=== PATIENT | female | born 1965 | race Caucasian/White ===

== ENCOUNTER 2019-03-04 21:32 | Emergency (ER) | payer SELFPAY ==
[~2019-03-04] VITALS: Ht 160 cm; Wt 56.7 kg
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
[2019-03-04 22:07] VITALS: BP 102/69
[2019-03-04] MEDS ORDERED: Lidocaine 1% MPF 10mg/ml 5ml INJ ONE (22:15)
[2019-03-04] MEDS ORDERED: Azithromycin 250mg tab ORAL ONE (22:15)
[2019-03-04 22:21] LABS: BASOPHILS % (AUTO) 0.8 % (0.0-2.0); EOSINOPHILS % (AUTO) 4.3 % (0.0-3.0); HEMATOCRIT 37.3 % (37.0-47.0); HEMOGLOBIN 12.3 G/DL (12.0-16.0); LYMPHOCYTES % (AUTO) 33.8 % (20.0-45.0); MEAN CORPUSCULAR VOLUME 93 FL (80-99); MONOCYTES % (AUTO) 11.5 % (1.0-10.0); NEUTROPHILS % (AUTO) 49.7 % (45.0-75.0); PLATELET COUNT 334 K/UL (150-450); RED BLOOD COUNT 4.03 M/UL (4.20-5.40); WHITE BLOOD COUNT 7.3 K/UL (4.8-10.8)
[2019-03-04 22:22] LABS: APPEARANCE,URINE CLOUDY; BILIRUBIN, URINE NEGATIVE (NEGATIVE); GLUCOSE, URINE (UA) NEGATIVE (NEGATIVE); KETONES,URINE 1+ (NEGATIVE); LEUKOCYTE ESTERASE ,URINE 3+ (NEGATIVE); NITRITE,URINE NEGATIVE (NEGATIVE); PH,URINE 5 (4.5-8.0); PROTEIN,URINE 1+ (NEGATIVE); UROBILINOGEN,URINE NORMAL MG/DL (0.0-1.0)
[2019-03-04 22:24] LABS: COLOR,URINE YELLOW
[2019-03-04 22:30] LABS: ANION GAP 7 mmol/L (5-15); BLOOD UREA NITROGEN 24 mg/dL (7-18); CALCIUM 9.1 MG/DL (8.5-10.1); CARBON DIOXIDE 29 MMOL/L (21-32); CHLORIDE 102 MMOL/L (98-107); CREATININE 0.9 MG/DL (0.55-1.30); SODIUM 138 MMOL/L (136-145)
[2019-03-04] MEDS ORDERED: metroNIDAZOLE 500mg tab ORAL ONE (22:45)
--- NOTE | 2019-03-04 22:53 | Diagnostic Imaging Report ---
EXAM: CT Abdomen and Pelvis Without Intravenous Contrast CLINICAL HISTORY: PAIN TECHNIQUE: Axial computed tomography images of the abdomen and pelvis without intravenous contrast. CTDI is 70 mGy and DLP is 967 mGy-cm. One or more of the following dose reduction techniques were used: automated exposure control, adjustment of the mA and/or kV according to patient size, use of iterative reconstruction technique. COMPARISON: No relevant prior studies available. FINDINGS: Artifacts: Study at least moderately degraded by patient motion. Limitations: Evaluation limited by the absence of IV contrast administration. Lung bases: Unremarkable. No mass. No consolidation. ABDOMEN: Liver: Unremarkable. Gallbladder and bile ducts: Unremarkable. No calcified stones. No ductal dilation. Pancreas: Unremarkable. No ductal dilation. Spleen: Unremarkable. No splenomegaly. Adrenals: Indeterminate nodular thickening left adrenal gland. Kidneys and ureters: Unremarkable. No obstructing stones. No hydronephrosis. Stomach and bowel: Moderate retained stool in the colon. Negative for high-grade obstruction or pneumatosis. No mucosal thickening. PELVIS: Appendix: No findings to suggest acute appendicitis. Bladder: Urinary bladder is inadequately distended for accurate evaluation. No stones. Reproductive: Unremarkable as visualized. ABDOMEN and PELVIS: Intraperitoneal space: Unremarkable. No free air. No significant fluid collection. Bones/joints: No acute fracture. No dislocation. Soft tissues: Unremarkable. Vasculature: Unremarkable. No abdominal aortic aneurysm. Lymph nodes: Mildly enlarged bilateral inguinal lymph nodes. IMPRESSION: Motion degraded study with diagnostic sensitivity decreased by the absence of IV contrast enhancement. Indeterminate bilateral inguinal lymphadenopathy.
[2019-03-04] MEDS ORDERED: DOXYCYCLINE MO100 MG ORAL (23:07)
[2019-03-04 23:15] VITALS: BP 100/72
== END 2019-03-04 23:15 | disposition home or self-care (01) ==
LOC: EDBD 21:32 → EMR 21:48
DX: N93.9 Abnormal uterine and vaginal bleeding, unspecified (principal); N73.9 Female pelvic inflammatory disease, unspecified; N30.00 Acute cystitis without hematuria; A59.09 Other urogenital trichomoniasis
CPT/HCPCS: 36415; 74176; 80048; 80307; 81001; 81025; 85025; 87086; 87210; 96360; 96372; 99284; J0696